=== PATIENT | female | born 1960 | race Caucasian/White ===

== ENCOUNTER 2019-12-04 09:03 | Emergency (ER) | payer BC, SELFPAY ==
--- NOTE | ~2019-12-04 | XR_ITS ---
EXAMINATION: XR chest 1V INDICATION: Dizziness TECHNIQUE: AP view of the chest is obtained. COMPARISON: 02/06/2018 FINDINGS: The lungs are free of acute opacities. There is no pleural effusion or pneumothorax. The ca rdiomediastinal silhouette is normal. IMPRESSION: 1. No acute cardiopulmonary abnormality. Reviewed, dictated and finalized at location A.
--- NOTE | ~2019-12-04 | CT_ITS ---
EXAMINATION: CTA BRAIN/CAROTID DATE: 12/04/2019 10:15 INDICATION: Headache and dizziness TECHNIQUE: Computed tomographic angiography (CTA) of the head and neck was performed with 100 mL Omni paque-350 intravenous contrast. Multiplanar reconstructions and maximum intensity projection 3D-recon structions of the carotid arteries and of the intracranial arteries were created by the technologist on a separate workstation. Precontrast CT of the head was also obtained. Automated exposure control and iterative reconstruction technique were employed.The dose-length product was 1522.70 mGy-cm. COMPARISON: None. FINDINGS: Carotid arteries: Small amount of atherosclerotic plaque with 0% stenosis at the left and right carotid bulbs relative to normal distal artery lumen diameter (NASCET criteria). Likely benign 7 mm left thyroid nodule wit h coarse calcification. Mild emphysema with mild biapical pleural-parenchymal scarring. Mild cervical spondylosis. Head: No acute intracranial hemorrhage, acute infarction or abnormal extra axial fluid collection. Ventricl es are normal and symmetric. No mass/mass effect. Mild mucosal thickening and small amount of posteri or layering fluid in the small left maxillary sinus. Postoperative changes at the right ethmoid sinus . The orbits and mastoid air cells are normal. Cerumen/debris at the bilateral external auditory elissa ls. No abnormally enhancing brain lesions. Intracranial arteries: Small amount of atherosclerotic calcification at the bilateral carotid siphons. There is no hemodynam ically significant stenosis in the vertebral, basilar and internal carotid arteries. Right vertebral artery is dominant. There are no aneurysms identified. The right P1 and bilateral A1 segments are pat ent. The left posterior cerebral artery is supplied from the left internal carotid artery and a paten t left posterior communicating arteries. Cerebral arterial arborization appears symmetric. IMPRESSION: 1. 0% stenosis of the left and right carotid bulbs relative to normal distal artery lumen diameter (N ASCET criteria). 2. No acute intracranial process or abnormally enhancing brain lesions. 3. Unremarkable cerebral angiogram with left posterior cerebral artery supplied via the left internal carotid artery and a patent left posterior tibial artery. 4. Mild emphysema. Reviewed, dictated and finalized at location A. IMPRESSION: 1. 0% stenosis of the left and right carotid bulbs relative to normal distal ar des lumen diameter (NASCET criteria). 2. No acute intracranial process or abnormally enhancing brain lesions. 3. Unremarkable cerebral angiogram with left posterior cerebral artery supplied via the left internal carotid artery and a patent left posterior tibial artery . 4. Mild emphysema.
[2019-12-04 09:10] VITALS: BP 158/98; PULSE 85; RESP 14; O2SAT 96
--- NOTE | 2019-12-04 09:21 | ECG_ITS ---
Measurements Intervals Morse Rate: 93 P: 57 TX: 144 QRS: 114 QRSD: 131 T: 38 QT: 377 QTc: 470 Interpretive Statements SINUS RHYTHM POSSIBLE LEFT ATRIAL ENLARGEMENT RIGHT BUNDLE BRANCH BLOCK LEFT POSTERIOR FASCICULAR BLOCK ABNORMAL ECG Electronically Signed On 12-04-2019 9:41:29 CDT by Carlito Lopez D.O.
--- NOTE | 2019-12-04 09:44 | ED.DIZZY ---
HPI - Dizziness General Chief Complaint: Dizziness Stated Complaint: dizzy Time Seen by Provider: 12/04/19 09:31 Source: patient Mode of arrival: ambulatory Limitations: no limitations History of Present Illness HPI Narrative: This patient is a 59 year old female who presents for evaluation of dizziness. She reports she woke up Moo morning with dizziness described as spinning. This has been constant and it is associated with nausea and vomiting. She reports history of vertigo in the past but she states it has never lasted this long. She is unable to walk due to her dizziness. She also has left facial pain aand headache for 2 weeks. She describes pain has pressure to left side of her face but she denies URI symptoms. Her PCP prescribed vailum today but she still has no relief of her symptoms. MD elicited complaint: difficulty walking Related Data Allergies Allergy/AdvReac Type Severity Reaction Status Date / Time levofloxacin AdvReac Unknown Muscle Verified 12/04/19 09:21 Spasms Review of Systems Review of Systems: All systems reviewed & are unremarkable except as noted in HPI and below Constitutional: Constitutional: Denies chills and Denies fever(s) Eyes: Eyes: Reports blurry vision ENT: Reports vertigo, Reports dizziness, Reports otalgia and Reports facial pain Cardiovascular: Cardiovascular: Denies chest pain Respiratory: Respiratory: Denies cough, Denies dyspnea and Denies wheezing Gastrointestinal: Gastrointestinal: Denies abdominal pain, Reports nausea and Reports vomiting Neurologic: Reports dizziness, Reports headache(s) and Denies focal weakness [facility] Past Medical History Medical History (Updated 12/04/19 @ 13:24 by Michelle Veloz MD) Elevated fasting glucose Insomnia Postmenopausal Screening for breast cancer Family History Family History (Updated 12/27/13 @ 07:13 by DOCTOR UNKNOWN) Mother Cerebrovascular accident Social History Social History Smoking status: Heavy tobacco smoker Alcohol intake: never Gender identity (if verbalized by the patient): Female Exam Const: General: alert Orientation/consciousness: patient oriented x3 HENMT: Head: No palpable skull fracture present, normocephalic and atraumatic Ears: external ears normal and TM's normal bilaterally Mouth: Yes lip normal, Yes tongue normal and Yes oropharynx normal Teeth and gingiva: dentition normal Throat: posterior oropharynx normal, tonsils normal and uvula midline Eyes: Conjunctivae: conjunctivae normal Pupils: Equal, round and reactive pupils present EOM: EOMs intact bilaterally Other: no nystagmus Neck: Neck: normal visual inspection and no lymphadenopathy Chest: Chest palpation & inspection: normal inspection of the chest Resp: Effort & Inspection: normal respiratory effort, no retractions and no use of accessory muscles Auscultation: clear to auscultation bilaterally Cardio: Rate: regular rate Rhythm: regular rhythm Heart sounds: no murmurs GI: GI Palp: Yes Soft to palpation, No Tenderness to palpation present (GI) and No Guarding due to palpation present (GI) Auscultation: normal bowel sounds : General: Yes no CVA tenderness Back/Spine/Pelvis: Back: no CVA tenderness Skin: General skin exam: normal color Rashes: no rashes Neuro: General: patient oriented x3, moves all extremities, no meningeal signs, no focal motor deficits and CN's II-XI intact bilaterally Cranial nerves: Yes Nystagmus not present Speech: normal speech Extrem: General: normal to inspection Psych: Mental Status: mental status grossly normal Affect: normal affect Course Reevaluation(s) Reevaluation #1: PAtient reports she feels better. She was able to ambulate with out nausea or dizziness. I Discussed with patient no acute stroke on CT . She has maxillary sinus fluid Date: 12/04/19 Time: 13:11 Vital Signs Vital signs: Vital Signs Pulse Rate 85 12/04/19 09:10 Respiratory Rate
[2019-12-04] MEDS: SODIUM CHLORIDE 0.9% IV 1,000 ML 999 ML IV CONT (10:01)
[2019-12-04] MEDS: PROMETHAZINE HCL 25 MG/ML AMPUL 12.5 MG IV PUSH (10:01)
[2019-12-04 10:02] VITALS: BP 129/75; PULSE 75; RESP 14; O2SAT 95
[2019-12-04 10:05] LABS: Basophils Absolute Auto 0.1 K/mm3 (0.0-0.1); Basophils Percent Auto 0.5 % (0.2-1.2); Eosinophils Absolute Auto 0.1 K/mm3 (0-0.3); Eosinophils Percent Auto 0.9 % (0-4.4); Hematocrit 51.5 % (37.0-47.0); Hemoglobin 17.4 g/dL (12.0-15.0); Immature Granulocyte Absolute 0.05 K/mm3 (0.00-0.031); Immature Granulocyte Percent A 0.4 % (0-0.5); Lymphocytes Absolute Auto 3.57 K/mm3 (0.9-3.2); Lymphocytes Percent Auto 27.6 % (18.3-44.2); Mean Corpuscular HGB Conc 33.8 g/dl (32-36); Mean Corpuscular Hemoglobin 29.9 pg (26-34); Mean Corpuscular Volume 88.5 fl (80-100); Mean Platelet Volume 9.2 fl (7.4-10.4); Monocytes Absolute Auto 0.8 K/mm3 (0.1-0.6); Monocytes Percent Auto 5.9 % (2.6-8.5); Neutrophils Absolute Auto 8.4 K/mm3 (1.3-6.7); Neutrophils Percent Auto 64.7 % (45.5-73.1); Platelet Count Result 310 k/mm3 (150-375); Red Blood Count 5.82 M/mm3 (4.2-5.4); Red Cell Distribution Width 13.7 % (11.5-14.5)
[2019-12-04 10:14] LABS: Estimated CRCL calculation 69 ml/min; Estimated Glomerular Filt Rate > 60
[2019-12-04 10:19] LABS: Anion Gap 12.6 mmol/L (7-16); Blood Urea Nitrogen 15 mg/dL (7-17); Calcium 9.6 mg/dL (8.4-10.2); Carbon Dioxide 24 mmol/L (22-30); Chloride 105 mmol/L (98-107); Estimated CRCL calculation 69 ml/min; Estimated Glomerular Filt Rate > 60; Glucose 137 mg/dL (65-105); Potassium 3.6 mmol/L (3.4-5.0); Sodium 138 mmol/L (137-145)
[2019-12-04 10:20] LABS: Prothrombin Time 12.5 Seconds (11.1-14.7)
[2019-12-04 10:21] LABS: Partial Thromboplastin Time 27.3 SECONDS (22.3-36.8)
[2019-12-04 10:35] LABS: Troponin I < 0.012 ng/mL (0.000-0.034)
[2019-12-04 11:12] LABS: Glucose Point of Care 94 (65-105)
[2019-12-04] MEDS: MECLIZINE HCL 25 MG TABLET PO (11:48)
[2019-12-04] MEDS: diphenhydrAMINE HCl INJ 50 MG/ML VIAL 25 MG IV PUSH (11:49)
[2019-12-04] MEDS: ONDANSETRON INJ 4 MG/2 ML VIAL IV PUSH (11:49)
[2019-12-04] MEDS: SODIUM CHLORIDE 0.9% IV 1,000 ML 999 ML (11:50)
[2019-12-04 11:55] VITALS: BP 139/88; PULSE 61; RESP 18; O2SAT 99
[2019-12-04 13:41] VITALS: BP 132/68; PULSE 78; RESP 18; O2SAT 99
== END 2019-12-04 13:43 | disposition home or self-care (01) ==
PROVIDERS: Emergency Provider General Practice; PCP Internal Medicine
DX: R42 Dizziness and giddiness (principal); J32.9 Chronic sinusitis, unspecified; R11.2 Nausea with vomiting, unspecified; F17.200 Nicotine dependence, unspecified, uncomplicated; J43.9 Emphysema, unspecified; I45.2 Bifascicular block; R94.31 Abnormal electrocardiogram [ECG] [EKG]
CPT/HCPCS: 36415; 70496; 70498; 71045; 80048; 82948; 84484; 85025; 85610; 85730; 93005; 96361; 96365; 96375; 99284; A9270; J0131; J1200; J2405; J2550; J7030; Q9967

== ENCOUNTER → 2020-04-21 10:48 | Outpatient (CLI) | payer BC, SELFPAY ==
--- NOTE | ~2020-04-21 | CT_ITS ---
EXAMINATION: CT sinus wo con DATE: 04/21/2020 11:08 INDICATION: Chronic sinusitis TECHNIQUE: Computed tomography (CT) of the paranasal sinuses was performed without intravenous contra st. The dose-length product (DLP) was 273.81 mGy-cm. Iterative reconstruction was used. COMPARISON: 12/04/2019, 12/20/2016 FINDINGS: There is normal development and pneumatization of the paranasal sinuses. Again seen is late ral deviation of the medial wall of the left maxillary sinus. There is mild mucosal thickening inferi makeda in the left maxillary sinus. There is opacification of the left ethmoidal air cells. The mastoid air cells are well aerated. The bilateral ostiomeatal complexes are patent. Visualized soft tissues are unremarkable. IMPRESSION: 1. Opacification of the left ethmoidal air cells and minimal left maxillary sinusitis. Reviewed, dictated and finalized at location A. ER COURIER IMPRESSION: 1. Opacification of the left ethmoidal air cells and minimal left maxillary sin usitis.
== END ==
PROVIDERS: Visit Provider Otolaryngology
DX: J32.9 Chronic sinusitis, unspecified (principal); R93.0 Abnormal findings on diagnostic imaging of skull and head, not elsewhere classified
CPT/HCPCS: 70486

== ENCOUNTER 2020-05-09 13:32 | Outpatient (CLI) | payer BC, SELFPAY ==
[2020-05-09 15:20] LABS: Anion Gap 10 mmol/L (8-16); Blood Urea Nitrogen 15 mg/dL (7-17); Calcium 9.7 mg/dL (8.4-10.2); Carbon Dioxide 25 mmol/L (22-30); Chloride 104 mmol/L (98-107); Estimated Glomerular Filt Rate > 60; Glucose 155 mg/dL (65-105); Potassium 3.8 mmol/L (3.4-5.0); Sodium 139 mmol/L (137-145)
== END 2020-05-09 13:33 | disposition home or self-care (01) ==
LOC: ANHSURGERY 13:37
PROVIDERS: Anesthesiology; PCP Internal Medicine; Visit Provider Otolaryngology
DX: Z01.812 Encounter for preprocedural laboratory examination (principal); Z79.899 Other long term (current) drug therapy
CPT/HCPCS: 36415; 80048

== ENCOUNTER 2020-05-14 08:22 | Outpatient (CLI) | payer BC, SELFPAY ==
[2020-05-14 18:18] LABS: SARS-CoV-2 RNA PCR Negative
== END 2020-05-14 08:23 | disposition home or self-care (01) ==
LOC: ANHCOVIDDT 08:22
PROVIDERS: PCP Internal Medicine; Visit Provider Otolaryngology
DX: Z20.822 Contact with and (suspected) exposure to COVID-19 (principal)
CPT/HCPCS: C9803; U0003; U0005

== ENCOUNTER 2020-05-16 02:05 | Day surgery (SDC) | payer BC, SELFPAY ==
[2020-05-08 14:36] VITALS: BMI 24.6
--- NOTE | 2020-05-14 14:49 | PM.IMHP ---
H&P: HPI History of Present Illness Date/Time: 05/14/20 14:49 Chief Complaint: Silent sinus syndrome left left chronic sinusitis left-sided acute sinusitis Narrative: Jennifer Singh is a 59 year old female who presents for planned surgical procedure. She reports no new symptoms Or changes in her medical history. Review of Systems Constitutional: Constitutional: Denies fatigue, Denies fever(s) and Denies lethargy Eyes: Eyes: Denies blurry vision and Denies change in vision ENT: Reports as per HPI Cardiovascular: Cardiovascular: Denies chest pain Respiratory: Respiratory: Denies cough Endocrine: Endocrine: Denies fatigue Hematologic/Lymphatic: Hematologic/Lymphatic: Denies easy bleeding, Denies easy bruising and Denies lymphadenopathy Allergic/Immunologic: Allergic/Immunologic: Denies seasonal rhinorrhea [facility] Past Medical History Medical History (Updated 05/14/20 @ 14:49 by Arvind Perez MD) Acute sinusitis Arthritis Dizziness Elevated fasting glucose Insomnia Postmenopausal Screening for breast cancer Seasonal allergies Vertigo Surgical History Surgical History History of lumbar fusion Family History Family History (Updated 01/21/20 @ 11:44 by Imelda Barba, RT(R)) Mother Cerebrovascular accident Other Arthritis Diabetes mellitus Hypertension Social History Social History Smoking packs per day: 0.5 Smoking cigarettes per day: 10.0 Years smoked: 30 Smoking pack-years: 15.00 Smoking status: Current every day smoker Tobacco type: cigarettes Second hand tobacco smoke exposure: Yes Alcohol intake: never Substance use: never Substance use type: does not use Gender identity (if verbalized by the patient): Female Spiritual care concerns: No Agree to blood products: No Meds Home Medications and Allergies Home Medications Medication Instructions Recorded Confirmed Type metaxalone 800 mg tablet 800 mg PO .qhs PRN #30 tablet 07/30/19 05/08/20 Rx meloxicam 15 mg tablet 15 mg PO DAILY #90 tablet 11/30/19 05/08/20 Rx meclizine 25 mg tablet 25 mg PO TID PRN #30 tablet 12/07/19 05/08/20 Rx escitalopram oxalate 10 mg tablet 10 mg PO DAILY #90 tablet 12/28/19 05/08/20 Rx cholecalciferol (vitamin D3) 50 50 mcg PO DAILY #90 tablet 01/16/20 05/08/20 Rx mcg (2,000 unit) tablet losartan 100 mg tablet 100 mg PO DAILY #90 tablet 01/29/20 05/08/20 Rx atorvastatin 80 mg tablet 80 mg PO DAILY #90 tablet 02/19/20 05/08/20 Rx albuterol sulfate 90 mcg/actuation 2 puff INHALATION Q4H PRN #18 g 04/29/20 05/08/20 Rx aerosol inhaler buspirone 7.5 mg BID 05/08/20 05/08/20 History hydrochlorothiazide 12.5 mg QAM 05/08/20 05/08/20 History Allergies Allergy/AdvReac Type Severity Reaction Status Date / Time levofloxacin AdvReac Unknown Muscle Verified 05/08/20 14:31 Spasms Exam Const: General: cooperative, healthy appearing, comfortable, well developed and alert HENMT: Head: normal to inspection, normocephalic and atraumatic Ears: hearing grossly normal bilaterally, external ears normal, TM's normal bilaterally and EAC's normal General nose exam: Normal external nose present, Normal nares present, No nasal polyps present, Normal nasal mucous membranes and turbinates present and Normal septum present Face and sinus: normal facial exam Mouth: Yes Normal oral and palatal mucosa present, Yes lip normal, Yes tongue normal, Yes oropharynx normal and Yes moist mucous membranes Teeth and gingiva: dentition normal and gingiva normal Throat: posterior oropharynx normal, tonsils normal and uvula midline Eyes: General: appearance normal, both eyes and all related structures Periorbital: periorbital findings normal Eyelids: eyelids normal Conjunctivae: conjunctivae normal Sclera: sclerae normal Neck: Neck: normal visual inspection, full ROM and no lymphadenopa
[2020-05-16] VITALS (9 sets, daily range): BP systolic 119–178; BP diastolic 66–96; PULSE 62–87; RESP 14–16; TEMP 36.2–36.6; O2SAT 92–95
--- NOTE | 2020-05-16 07:01 | WPDHPUPDATE1 ---
History and Physical Update Update Date/Time: 05/16/20 07:01 History and Physical has been reviewed, including an updated exam of the patient. There are NO changes in the patient's condition. Risks, benefits, and alternatives have been discussed and questions answered. Patient agrees to proceed with procedure.
[2020-05-16] MEDS: ACETAMINOPHEN 500 MG TABLET 1000 MG PO (09:51)
[2020-05-16] MEDS: LACTATED RINGERS 1,000 ML 30 ML IV CONT ×2 (10:05→13:51)
--- NOTE | 2020-05-16 11:12 | SUR.PREOP ---
updated pt surgery delay.
--- NOTE | 2020-05-16 11:46 | WPDANESEPPF ---
Anes - Initial Pre Proc Eval Procedure: Operation Date: 05/16/20 11:[address] Guided Left Maxillary Antrostomy, Left Frontal Sinusotomy, Left Anterior Ethmoidectomy - Arvind Perez MD s Septoplasty - Arvind Perez MD Date/Time: 05/16/20 11:46 Surgeon: Arvind Perez MD Pre Op Diagnosis: Silent Sinus Syndrome Patient Data Age: 59 Gender: F Height: 5 ft 7 in Weight: 72 kg Last Vital Signs Temp 36.6 C 05/16/20 09:37 Pulse 62 05/16/20 09:37 Resp 14 05/16/20 09:37 BP 119/66 05/16/20 09:37 Pulse Ox 95 05/16/20 09:37 Allergies Allergy/AdvReac Type Severity Reaction Status Date / Time levofloxacin AdvReac Unknown Muscle Verified 05/16/20 09:46 Spasms Home Medications Medication Instructions Recorded Confirmed Type metaxalone 800 mg tablet 800 mg PO .qhs PRN #30 tablet 07/30/19 05/16/20 Rx meloxicam 15 mg tablet 15 mg PO DAILY #90 tablet 11/30/19 05/16/20 Rx meclizine 25 mg tablet 25 mg PO TID PRN #30 tablet 12/07/19 05/16/20 Rx escitalopram oxalate 10 mg tablet 10 mg PO DAILY #90 tablet 12/28/19 05/16/20 Rx cholecalciferol (vitamin D3) 50 50 mcg PO DAILY #90 tablet 01/16/20 05/16/20 Rx mcg (2,000 unit) tablet losartan 100 mg tablet 100 mg PO DAILY #90 tablet 01/29/20 05/16/20 Rx atorvastatin 80 mg tablet 80 mg PO DAILY #90 tablet 02/19/20 05/16/20 Rx albuterol sulfate 90 mcg/actuation 2 puff INHALATION Q4H PRN #18 g 04/29/20 05/16/20 Rx aerosol inhaler buspirone 7.5 mg BID 05/08/20 05/16/20 History hydrochlorothiazide 12.5 mg QAM 05/08/20 05/16/20 History Patient hx anesthesia problems: none Family hx anesthesia problems: none PMFSH Past Medical History Medical History Acute sinusitis Arthritis Dizziness Elevated fasting glucose Insomnia Postmenopausal Screening for breast cancer Seasonal allergies Vertigo Surgical History Surgical History H/O sinus surgery History of lumbar fusion Family History Family History Mother Cerebrovascular accident Other Arthritis Diabetes mellitus Hypertension Social History Social History Smoking packs per day: 0.5 Smoking cigarettes per day: 10.0 Years smoked: 30 Smoking pack-years: 15.00 Smoking status: Current every day smoker Tobacco type: cigarettes Second hand tobacco smoke exposure: Yes Alcohol intake: never Substance use: never Substance use type: does not use Living arrangements: with family Gender identity (if verbalized by the patient): Female Spiritual care concerns: No Agree to blood products: No Anes - Eval Final PreProcedure Day of Procedure 05/16/20 11:46 Patient weight: normal Heart: regular rate and rhythm Lungs: clear to auscultation Airway: Mallampati scale class II Neurological: alert and oriented Last oral intake: >/= 8 hours ASA classification: III Emergent: no Anesthetic plan: proceed Anesthesia type and monitoring: general ETT and standard monitoring Informed Consent: The patient's anesthetic plan and its attendant risks and benefits were discussed with the patient/family/POA. Questions were solicited and answers provided to the satisfaction of the patient/family/POA.
[2020-05-16] MEDS: ceFAZolin 2 GM/D5W 50 ML 2 GM/50 ML BAG IVPB (12:54)
[2020-05-16] MEDS: LIDO 1%/EPINEPHRINE 1:100,000 50 ML VIAL INFILTRATE (13:13)
[2020-05-16] MEDS: OXYMETAZOLINE HCL 0.05% NAS 15 ML BTL (*BKC) 1 SPRAY NASAL (13:15)
--- NOTE | 2020-05-16 13:42 | SUR.OPER ---
ebl 20
[2020-05-16] MEDS: fentaNYL CITRATE INJ (*CRX) 100 MCG/2 ML VIAL 25 MCG IV PUSH ×3 (13:57→14:14)
--- NOTE | 2020-05-16 14:12 | P.OP_ITS ---
Procedure Note - Detailed Date of procedure: 05/16/20 Pre-op diagnosis: Silent Sinus Syndrome Chronic sinusitis Post-op diagnosis: same Procedure performed: 1. Endoscopic left maxillary antrostomy 2. Endoscopic left anterior ethmoidectomy 3. Left endoscopic frontal sinusotomy Description of procedure: The patient was correctly identified and consent was verified in the preoperative holding area. The patient was then brought to the operating room and a time-out performed. General anesthesia was induced and endotracheal tube secured the patient's airway and taped the left lower lip. The patient was then prepped and draped for the aforementioned procedures. Afrin-soaked pledgets were inserted in the bilateral nasal passages. Image guidance was initiated. The Afrin-soaked pledgets removed and 0 degree endo scope was utilized to view the bilateral nasal passages left inferior septal spur was noted which was nonobstructive. The left middle turbinate was medialized and image guided was utilized to confirm that the uncinate was very very lateralized against the orbit. This uncinate was slowly removed with a combination of double ball tip probe micro debrider and frontal image guided seeker. The entire uncinate removed and the diseased mucosa was also removed revealing the entire smaller maxillary sinus. The orbit was confirmed to be intact. A micro debrider as well as up-biting Kerrison was utilized to perform an anterior ethmoidectomy and a 70 degree scope as well as frontal sinus suction and Cobra utilized center the frontal sinus. This was confirmed with image guidance. No skull base injury occurred. Hemostasis was noted to be excellent. This marked end the procedure. Care of the patient was turned over to Anesthesiology. I performed all dictated portions of the procedure. Anesthesia: GLMA Surgeon: Arvind Perez MD Estimated blood loss (mL): 20 Complications: No immediate complications Condition: stable Disposition: PACU
[2020-05-16] MEDS: oxyCODONE HCL (*CRX) 5 MG TAB IR PO (15:21)
== END 2020-05-16 16:10 | disposition home or self-care (01) ==
PROVIDERS: PCP Internal Medicine; Visit Provider Otolaryngology
PROC: (CPT 31254; principal; 2020-05-16 11:15)
DX: J32.9 Chronic sinusitis, unspecified (principal); J34.89 Other specified disorders of nose and nasal sinuses; Z79.51 Long term (current) use of inhaled steroids; M19.90 Unspecified osteoarthritis, unspecified site; G47.00 Insomnia, unspecified; F17.210 Nicotine dependence, cigarettes, uncomplicated
CPT/HCPCS: 31254; 31256; 31276; 61782; A9270; J0330; J0690; J1100; J2250; J2405; J2704; J3010; J7120

== ENCOUNTER 2020-09-03 13:48 | Outpatient (CLI) | payer BC, SELFPAY ==
--- NOTE | ~2020-09-03 | MM_ITS ---
EXAMINATION: MM screening kyra BI w abhilash HISTORY: Screening TECHNIQUE: Craniocaudal and mediolateral oblique 3-D tomosynthesis images were obtained and synthetic 2-D images were generated. CAD analysis was submitted and interpreted. COMPARISON: No prior mammogram is available for comparison at this institution. BREAST PARENCHYMAL COMPOSITION: There are scattered areas of fibroglandular density. FINDINGS: There is no evidence of suspicious mass, calcification, or architectural distortion to sugg est malignancy in either breast. There has been no suspicious interval change. IMPRESSION: 1. No mammographic evidence of malignancy. 2. Recommend routine screening mammography in one year. BI-RADS Category 2: Benign finding(s). Reviewed, dictated and finalized at location A.
--- NOTE | ~2020-09-03 | DEXA_ITS ---
Bone Density Report Name: Jennfier Singh Age: 60 Sex: Female Ethnicity: White Date of : 1960 Indication: postmenopausal; height loss; prior fracture; hysterectomy; Referring Provider: Thea Gallardo Study: Bone densitometry was performed. Exam Date: September 03, 2020 Accession number: [id number] Bone Density: Region BMD T-score Z-score Classification AP Spine (L1, L2) 0.975 0.0 1.4 Normal Femoral Neck (Left) 0.650 -1.8 -0.5 Osteopenia Total Hip (Left) 0.834 -0.9 0.1 Normal Total Hip Bilateral Avg 0.812 -1.1 -0.1 Osteopenia Femoral Neck (Right) 0.607 -2.2 -0.9 Osteopenia Total Hip (Right) 0.789 -1.3 -0.3 Osteopenia World Health Organization criteria for BMD impression classify patients as: Normal (T-score at or above -1.0), Osteopenia (T-score between -1.0 and -2.5), or Osteoporosis (T-score at or below -2.5). 10-year Fracture Risk(1): Major Osteoporotic Fracture 18% Hip Fracture 4.4% Reported Risk Factors: [place] (), Neck BMD=0.607, BMI=26.5, previous fracture, smoking (1) FRAX(R) Version 3.08. Fracture probability calculated for an untreated patient. Fracture probability may be lower if the patient has received treatment. Clinical Information Provided by Patient: Has had a low trauma fracture Smokes Has used the following medications: Vitamin D Has the following medical conditions: Hysterectomy Patient maximum height was 66 Menopause Age: 51 Drinks caffeinated beverages Onset of menses at age 13 Number of children 2 Impression: The patient has low bone mass, based on the Right Femoral Neck T-score. The patient has an estimated ten-year risk of hip fracture of 4.4% and an estimated ten-year risk of major fracture of 18%, based on the WHO FRAX algorithm. The patient has risk factors, including: smoking, previous fracture. Discussion: BONE DENSITY IS LOW AT ONE OR MORE SKELETAL SITES. THE PATIENT'S BMD AND CLINICAL RISK FACTORS CONTRIBUTE TO THIS PATIENT'S INCREASED RISK OF FRACTURE. This patient's lowest T-score is low at one or more skeletal sites. It meets the World Health Organization's (WHO) criteria for ?low bone mass? (T-score between -1.0 and -2.5). The patient's 10-year risk of hip fracture as calculated by FRAX exceeds the threshold where pharmacological therapy is recommended by the National Osteoporosis Foundation (NOF). However, all treatment decisions require clinical judgment and consideration of individual patient factors, including patient preferences, comorbidities, previous drug use, risk factors not captured in the FRAX model (e.g., frailty, falls, vitamin D deficiency, increased bone turnover, interval significant decline in bone density) and possible under or overestimation of fracture risk by FRAX. The patient should follow a healthful lifestyle (good nut
== END 2020-09-03 13:49 | disposition home or self-care (01) ==
LOC: ANHIMG 13:50
PROVIDERS: PCP Internal Medicine; Visit Provider Nurse Practitioner
DX: Z12.31 Encounter for screening mammogram for malignant neoplasm of breast (principal); Z78.0 Asymptomatic menopausal state; M85.852 Other specified disorders of bone density and structure, left thigh; M85.851 Other specified disorders of bone density and structure, right thigh
CPT/HCPCS: 77063; 77067; 77080

== ENCOUNTER 2021-02-24 10:45 | Outpatient (CLI) | payer BC, SELFPAY ==
--- NOTE | ~2021-02-24 | US_ITS ---
EXAMINATION: US soft tissue head and neck DATE: 02/24/2021 11:36 INDICATION: Enlarged lymph nodes, unspecified. TECHNIQUE: Multiple grayscale and Doppler ultrasound images of the neck were obtained. COMPARISON: None FINDINGS: There are normal lymph nodes in the neck bilaterally. In the left thyroid lobe, there is a 7 mm solid, isoechoic, ephlm-[id number]-[id number] nodule with smooth margin and peripheral calcifications (TI-RA DS TR4), likely not clinically significant and needing no follow-up. IMPRESSION: 1. No abnormal cervical lymphadenopathy. Reviewed, dictated and finalized at location A.
== END 2021-02-24 10:46 | disposition home or self-care (01) ==
LOC: ANHIMG 10:53
PROVIDERS: PCP Internal Medicine; Visit Provider Internal Medicine
DX: R59.9 Enlarged lymph nodes, unspecified (principal)
CPT/HCPCS: 76536

== ENCOUNTER 2021-06-15 00:39 | Day surgery (SDC) | payer BC, SELFPAY ==
[2021-06-01 14:34] VITALS: BMI 25.4
[2021-06-15 06:54] VITALS: BP 125/89; PULSE 86; RESP 16; TEMP 36.5; O2SAT 98; BMI 24.1
[2021-06-15] MEDS: LACTATED RINGERS 1,000 ML 150 ML IV CONT (07:03)
--- NOTE | 2021-06-15 07:24 | WPDGICN ---
Assessment and Plan Assessment and plan (1) Screening for colon cancer: Code(s): Z12.11 - Encounter for screening for malignant neoplasm of colon Status: Acute Assessment and Plan: Patient presents today for screening colonoscopy. Appears to be at average risk for colon polyps. GI Consult Note Consult date/time: 06/15/21 07:24 HPI: Jennifer Singh is a 60 year old female Presents for screening colonoscopy. Patient reports that her current weight appetite and bowel movements are normal. She denies abdominal pain. She has had no bleeding. Family history is noncontributory. Patient presents today for neoplasia screening. [facility] Past Medical History Medical History Anxiety Arthritis Elevated fasting glucose Hypercholesteremia Hypertension Insomnia Postmenopausal Seasonal allergies Vaginal delivery x2 Surgical History Surgical History H/O sinus surgery History of cholecystectomy 1999 History of hysterectomy 1997 History of lumbar fusion Family History Family History Mother Cerebrovascular accident Depression Anxiety Thyroid disorder Father Hypertension Sibling Alcoholism Thyroid disorder Son Alcoholism Other Arthritis Diabetes mellitus Social History Social History Smoking packs per day: 0.5 Smoking cigarettes per day: 10.0 Years smoked: 20 Smoking pack-years: 10.00 Smoking status: Current every day smoker Tobacco type: cigarettes Second hand tobacco smoke exposure: Yes Alcohol intake: current Alcohol use details: once or twice a year Substance use: current Substance use type: marijuana Other substance usage details: cannabis cigarettes Last use: several months Living arrangements: with family Gender identity (if verbalized by the patient): Female Sexual Orientation (if Verbalized by the Patient): Straight or Heterosexual Spiritual care concerns: No Agree to blood products: No Meds Home Medications and Allergies Home Medications Medication Instructions Recorded Confirmed Type calcium carbonate 500 mg calcium 500 mg PO DAILY #90 tablet 09/08/20 06/01/21 Rx (1,250 mg) tablet atorvastatin 80 mg tablet 80 mg PO DAILY #90 tablet 12/17/20 06/01/21 Rx cholecalciferol (vitamin D3) 50 50 mcg PO DAILY #90 tablet 01/28/21 06/01/21 Rx mcg (2,000 unit) tablet buspirone 7.5 mg PO DAILY 06/01/21 06/01/21 History escitalopram oxalate 10 mg PO DAILY 06/01/21 06/01/21 History hydrochlorothiazide 12.5 mg PO DAILY 06/01/21 06/01/21 History losartan 100 mg PO DAILY 06/01/21 06/01/21 History meloxicam 15 mg PO DAILY 06/01/21 06/01/21 History Allergies Allergy/AdvReac Type Severity Reaction Status Date / Time levofloxacin AdvReac Unknown Muscle Verified 06/15/21 06:53 Spasms Vital Signs Vital Signs - 24 hr 06/15/21 06:54 Temperature 97.7 F Pulse Rate 86 Respiratory Rate 16 Blood Pressure 125/89 Pulse Oximetry 98 Exam Narrative: Physical exam reveals patient to be alert. Vital signs stable. HEENT exam is unremarkable. Patient is anicteric. Lungs are clear to auscultation and percussion. Heart is without murmur or extra sounds. Abdominal exam bowel sounds are present soft nontender with no organomegaly. Digital external rectal exam is normal.
--- NOTE | 2021-06-15 07:28 | WPDANESEPPF ---
Anes - Initial Pre Proc Eval Procedure: Operation Date: 06/15/21 08:00 Proposed Procedures p Screening Colonoscopy - Saroj Meeks MD Date/Time: 06/15/21 07:28 Surgeon: Saroj Meeks MD Pre Op Diagnosis: neoplasm screening Patient Data Age: 60 Gender: F Height: 1.68 m Weight: 67.9 kg Last Vital Signs Temp 36.5 C 06/15/21 06:54 Pulse 86 06/15/21 06:54 Resp 16 06/15/21 06:54 BP 125/89 06/15/21 06:54 Pulse Ox 98 06/15/21 06:54 Allergies Allergy/AdvReac Type Severity Reaction Status Date / Time levofloxacin AdvReac Unknown Muscle Verified 06/15/21 06:53 Spasms Home Medications Medication Instructions Recorded Confirmed Type calcium carbonate 500 mg calcium 500 mg PO DAILY #90 tablet 09/08/20 06/01/21 Rx (1,250 mg) tablet atorvastatin 80 mg tablet 80 mg PO DAILY #90 tablet 12/17/20 06/01/21 Rx cholecalciferol (vitamin D3) 50 50 mcg PO DAILY #90 tablet 01/28/21 06/01/21 Rx mcg (2,000 unit) tablet buspirone 7.5 mg PO DAILY 06/01/21 06/01/21 History escitalopram oxalate 10 mg PO DAILY 06/01/21 06/01/21 History hydrochlorothiazide 12.5 mg PO DAILY 06/01/21 06/01/21 History losartan 100 mg PO DAILY 06/01/21 06/01/21 History meloxicam 15 mg PO DAILY 06/01/21 06/01/21 History Patient hx anesthesia problems: none Family hx anesthesia problems: none Results Review: All pre-operative results and documents have been reviewed as part of the pre-operative evaluation. [facility] Past Medical History Medical History Anxiety Arthritis Elevated fasting glucose Hypercholesteremia Hypertension Insomnia Postmenopausal Seasonal allergies Vaginal delivery x2 Surgical History Surgical History H/O sinus surgery History of cholecystectomy 1999 History of hysterectomy 1997 History of lumbar fusion Family History Family History Mother Cerebrovascular accident Depression Anxiety Thyroid disorder Father Hypertension Sibling Alcoholism Thyroid disorder Son Alcoholism Other Arthritis Diabetes mellitus Social History Social History Smoking packs per day: 0.5 Smoking cigarettes per day: 10.0 Years smoked: 20 Smoking pack-years: 10.00 Smoking status: Current every day smoker Tobacco type: cigarettes Second hand tobacco smoke exposure: Yes Alcohol intake: current Alcohol use details: once or twice a year Substance use: current Substance use type: marijuana Other substance usage details: cannabis cigarettes Last use: several months Living arrangements: with family Gender identity (if verbalized by the patient): Female Sexual Orientation (if Verbalized by the Patient): Straight or Heterosexual Spiritual care concerns: No Agree to blood products: No Anes - Eval Final PreProcedure Day of Procedure 06/15/21 07:28 Patient weight: normal Heart: regular rate and rhythm Lungs: clear to auscultation Airway: Mallampati scale class II Neurological: alert and oriented Last oral intake: >/= 8 hours ASA classification: III Emergent: no Anesthetic plan: proceed Anesthesia type and monitoring: general GIVS and standard monitoring Results Review: All pre-operative results and documents have been reviewed as part of the pre-operative evaluation. Informed Consent: The patient's anesthetic plan and its attendant risks and benefits were discussed with the patient/family/POA. Questions were solicited and answers provided to the satisfaction of the patient/family/POA.
[2021-06-15 08:18] VITALS: BP 91/55; PULSE 57; RESP 24; O2SAT 93
[2021-06-15 08:28] VITALS: BP 119/73; PULSE 68; RESP 17; O2SAT 97
[2021-06-15 08:38] VITALS: BP 125/76; PULSE 60; RESP 15; O2SAT 98
== END 2021-06-15 08:45 | disposition home or self-care (01) ==
PROVIDERS: PCP Internal Medicine; Visit Provider Internal Medicine Gastroenterology
PROC: 0DJD8ZZ Inspection of Lower Intestinal Tract, Via Natural or Artificial Opening Endoscopic (ICD-10-PCS; CPT 45378; principal; 2021-06-15 08:00)
DX: Z12.11 Encounter for screening for malignant neoplasm of colon (principal); K64.8 Other hemorrhoids; K57.30 Diverticulosis of large intestine without perforation or abscess without bleeding; F41.9 Anxiety disorder, unspecified; M19.90 Unspecified osteoarthritis, unspecified site; E78.00 Pure hypercholesterolemia, unspecified; I10 Essential (primary) hypertension; R73.01 Impaired fasting glucose; F17.210 Nicotine dependence, cigarettes, uncomplicated; F12.90 Cannabis use, unspecified, uncomplicated; G47.00 Insomnia, unspecified
CPT/HCPCS: 45378; J2704; J7120

== ENCOUNTER 2021-10-05 09:33 | Outpatient (CLI) | payer BC, SELFPAY ==
--- NOTE | ~2021-10-05 | MM_ITS ---
EXAMINATION: MM screening [facility] BI w abhilash HISTORY: Screening mammogram TECHNIQUE: Craniocaudal and mediolateral oblique 3-D tomosynthesis images were obtained and synthetic 2-D images were generated. CAD analysis was submitted and interpreted. COMPARISON: 09/03/2020, 12/24/2009 BREAST PARENCHYMAL COMPOSITION: There are scattered areas of fibroglandular density. FINDINGS: Scattered benign-appearing calcifications are present. There is no suspicious mass, calcifi cation, or architectural distortion to suggest malignancy in either breast. There has been no suspici ous interval change. IMPRESSION: 1. No mammographic evidence of malignancy. 2. Recommend routine screening mammography in one year. BI-RADS Category 2: Benign finding(s). Reviewed, dictated and finalized at location A.
== END 2021-10-05 09:34 | disposition home or self-care (01) ==
LOC: ANHIMG 09:34
PROVIDERS: PCP Internal Medicine; Visit Provider Nurse Practitioner
DX: Z12.31 Encounter for screening mammogram for malignant neoplasm of breast (principal)
CPT/HCPCS: 77063; 77067

== ENCOUNTER 2022-01-12 11:19 | Emergency (ER) | payer BC, SELFPAY ==
--- NOTE | ~2022-01-12 | XR_ITS ---
EXAMINATION: XR ankle RT min 3V INDICATION: Right ankle pain TECHNIQUE: Four views of the right ankle are obtained. COMPARISON: None available FINDINGS: There is marked soft tissue swelling overlying the lateral malleolus. Bone alignment is nor mal. There is no fracture. IMPRESSION: 1. Lateral ankle soft tissue swelling without acute osseous abnormality. Reviewed, dictated and finalized at location B.
[2022-01-12 11:21] VITALS: BP 154/101; PULSE 99; RESP 14; TEMP 36.8; O2SAT 98
--- NOTE | 2022-01-12 11:55 | ED.LOWEXIN ---
HPI - Extremity Injury (Lower) General Chief Complaint: Extremity Injury, Lower Stated Complaint: right ankle injury Time Seen by Provider: 01/12/22 11:28 History of Present Illness HPI Narrative: 61-year-old female presents to the emergency room for evaluation of right ankle pain. Patient states that she missed stepped and twisted her ankle. Reports pain is worse with ambulation with a cold. Took [id number] medications without any relief of symptoms. Related Data Home Medications Medication Instructions Recorded Confirmed buspirone 7.5 mg tablet 7.5 mg PO DAILY 06/01/21 08/18/21 Allergies Allergy/AdvReac Type Severity Reaction Status Date / Time levofloxacin AdvReac Unknown Muscle Verified 08/18/21 11:36 Spasms Review of Systems Review of Systems: CONSTITUTIONAL: Denies fever, chills, or sweats. EYES: Denies visual changes, redness, or discharge. ENT: Denies rhinorrhea, congestion, sore throat, or otalgia. CARDIOVASCULAR: Denies chest pain, palpitations, or edema. RESPIRATORY: Denies cough or dyspnea. GASTROINTESTINAL: Denies abdominal pain, nausea, vomiting, or diarrhea. GENITOURINARY: Denies dysuria or hematuria. SKIN: Denies rash or itching. MUSCULOSKELETAL: Reports right ankle pain NEUROLOGIC: Denies headache, numbness, dizziness, or weakness. PSYCHIATRIC: Denies anxiety or depression. [facility] Past Medical History Medical History Anxiety Arthritis Elevated fasting glucose Hypercholesteremia Hypertension Insomnia Postmenopausal Seasonal allergies Vaginal delivery x2 Surgical History Surgical History H/O sinus surgery History of cholecystectomy 1999 History of hysterectomy 1997 History of lumbar fusion Family History Family History Mother Cerebrovascular accident Depression Anxiety Thyroid disorder Father Hypertension Sibling Alcoholism Thyroid disorder Son Alcoholism Other Arthritis Diabetes mellitus Social History Social History Smoking packs per day: 0.5 Smoking cigarettes per day: 10.0 Years smoked: 20 Smoking pack-years: 10.00 Smoking status: Current every day smoker Tobacco type: cigarettes Second hand tobacco smoke exposure: Yes Alcohol intake: current Alcohol use details: once or twice a year Substance use: current Substance use type: marijuana Other substance usage details: cannabis cigarettes Last use: several months Gender identity (if verbalized by the patient): Female Sexual Orientation (if Verbalized by the Patient): Straight or Heterosexual Spiritual care concerns: No Agree to blood products: No Exam Narrative: GENERAL: Well-appearing, well-nourished, no physical limitations, and in no acute distress. HEAD: Normocephalic, atraumatic. EYES: Conjunctivae normal, PERRLA and EOMI. CHEST: Clear to auscultation. No respiratory distress. No wheezes rales or rhonchi. No tenderness. HEART: Regular rate and rhythm. No murmur heard. Normal peripheral pulses. EXTREMITIES: Right ankle: Soft tissue swelling to the lateral malleolus, no joint laxity. Neurovascular is intact distally. No obvious bony abnormality SKIN: Warm, dry, no rash. No noted wounds NEURO: No focal deficits. Alert and oriented x3. MAEW. CN's II-XI intact bilaterally, normal gait PSYCH: Cooperative. Normal mood and affect. Course Vital Signs Vital signs: Vital Signs Temperature 36.8 C 01/12/22 11:21 Pulse Rate 99 01/12/22 11:21 Respiratory Rate 14 01/12/22 11:21 Blood Pressure 154/101 H 01/12/22 11:21 Pulse Oximetry 98 01/12/22 11:21 Oxygen Delivery Room Air 01/12/22 11:21 Temperature 36.8 C 01/12/22 11:21 Pulse Rate 99 01/12/22 11:21 Respiratory Rate 14 01/12/22 11:21 Blood Pressure 1
== END 2022-01-12 13:01 | disposition home or self-care (01) ==
PROVIDERS: Emergency Provider Nurse Practitioner Family; PCP Internal Medicine
DX: S93.401A Sprain of unspecified ligament of right ankle, initial encounter (principal); X50.0XXA Overexertion from strenuous movement or load, initial encounter; I10 Essential (primary) hypertension; E78.00 Pure hypercholesterolemia, unspecified; F41.9 Anxiety disorder, unspecified; Z98.1 Arthrodesis status; F17.210 Nicotine dependence, cigarettes, uncomplicated; F12.90 Cannabis use, unspecified, uncomplicated
CPT/HCPCS: 73610; 99283

== ENCOUNTER 2023-12-22 08:51 | Outpatient (CLI) | payer BC, SELFPAY ==
--- NOTE | ~2023-12-22 | XR_ITS ---
EXAM: XR shoulder LT min 2V DATE: 12/22/2023 09:17 HISTORY: M25.512 - Pain in left shoulder, INJURY, ANTERIOR PAIN . COMPARISON: None available. FINDINGS: Decreased mineralization. Linear sclerosis with focal cortical buckling along the posterio r medial aspect of the proximal left humeral shaft. No lytic or blastic lesion. Mild degenerative kleber nge at the AC joint and glenohumeral joint. No erosion or periosteal change. Soft tissues within norm al limits. IMPRESSION: Osteopenia. Possible incomplete/stress fracture in the proximal posteromedial left daniele l shaft. Reviewed, dictated and finalized at location K. IMPRESSION: Osteopenia. Possible incomplete/stress fracture in the proximal pos teromedial left humeral shaft.
== END 2023-12-22 08:52 | disposition home or self-care (01) ==
LOC: ANHIMG 08:53
PROVIDERS: PCP Nurse Practitioner Family; Visit Provider Nurse Practitioner Family
DX: M85.812 Other specified disorders of bone density and structure, left shoulder (principal)
CPT/HCPCS: 73030

== ENCOUNTER 2024-05-31 08:16 | Outpatient (CLI) | payer BC, SELFPAY ==
[2024-05-31 09:48] LABS: Influenza A QL RT-PCR Negative (Negative); Influenza B QL RT-PCR Negative (Negative); RSV RNA, RT-PCR Negative (Negative); SARS-CoV-2 RNA PCR Negative (Negative)
== END 2024-05-31 08:17 | disposition home or self-care (01) ==
LOC: ANHLAB 08:17
PROVIDERS: PCP Nurse Practitioner Family; Visit Provider Nurse Practitioner Family
DX: J02.9 Acute pharyngitis, unspecified (principal); Z20.822 Contact with and (suspected) exposure to COVID-19
CPT/HCPCS: 87070; 87637